=== PATIENT | male | born 1970 | race Caucasian/White ===

== ENCOUNTER 2016-08-30 00:11 | Emergency (ER) | payer SELFPAY ==
[2016-08-30 00:17] VITALS: RESP 18; TEMP 98.7
[2016-08-30] MEDS ORDERED: SODIUM CHLORIDE 0.9% 1,000 ML IV STA (00:24)
[2016-08-30] MEDS ORDERED: LORazepam 2 MG/ML SYRINGE IV STA (00:24)
--- NOTE | 2016-08-30 00:28 | ED ---
General Adult HPI - General Source: patient, police, EMS, RN notes reviewed Mode of arrival: EMS Limitations: no limitations <Blane Meléndez - Last Filed: 08/30/16 03:06> <Espinoza Mack - Last Filed: 09/05/16 20:44> - General Chief complaint: Alcohol Stated complaint: ETOH Time Seen by Provider: 08/30/16 00:16 - History of Present Illness Initial comments: Patient 46-year-old male who presents emergency room today by EMS for alcohol intoxication. Patient does admit to a history of Crohn's. He states he does have abdominal pain. She is in the lower abdomen. States consistent with Crohn 's that is had in the past. Patient denies any other complaints or associated symptoms. Patient denies any recent fever, chills, shortness of breath, chest pain, back pain, nausea or vomiting, numbness or tingling, dysuria or hematuria , constipation or diarrhea, headaches or visual changes, or any other complaints. (Blane Meléndez) - Related Data Home Medications Medication Instructions Recorded Confirmed No Known Home Medications [No 08/30/16 09/04/16 Known Home Medications] Allergies Allergy/AdvReac Type Severity Reaction Status Date / Time dicyclomine [From Bentyl] AdvReac Vomiting Verified 09/04/16 07:02 fentanyl AdvReac Vomiting Verified 09/04/16 07:02 hydrocodone AdvReac Vomiting Verified 09/04/16 07:02 ketorolac [From Toradol] AdvReac Vomiting Verified 09/04/16 07:02 oxycodone AdvReac Vomiting Verified 09/04/16 07:02 tramadol AdvReac Vomiting Verified 09/04/16 07:02 Review of Systems ROS Other: All systems not noted in ROS Statement are negative. <Blane Meléndez - Last Filed: 08/30/16 03:06> ROS Other: All systems not noted in ROS Statement are negative. <Espinoza Mack - Last Filed: 09/05/16 20:44> ROS Statement: Those systems with pertinent positive or pertinent negative responses have been documented in the HPI. Past Medical History Additional Past Medical History / Comment(s): CROHNS History of Any Multi-Drug Resistant Organisms: None Reported Past Surgical History: Unable to Obtain Past Psychological History: No Psychological Hx Reported Smoking Status: Current every day smoker Past Alcohol Use History: Heavy Past Drug Use History: None Reported <Blane Meléndez - Last Filed: 08/30/16 03:06> General Exam Limitations: no limitations <Blane Meléndez - Last Filed: 08/30/16 03:06> <Espinoza Mack - Last Filed: 09/05/16 20:44> - General Exam Comments Initial Comments: General: The patient is awake and alert, in no distress, and does not appear acutely ill. Intoxicated. Eye: Pupils are equal, round and reactive to light, extra-ocular movements are intact. No nystagmus. There is normal conjunctiva bilaterally. No signs of icterus. Ears, nose, mouth and throat: There are moist mucous membranes and no oral lesions. Neck: The neck is supple, there is no tenderness or JVD. Cardiovascular: There is a regular rate and rhythm. No murmur, rub or gallop is appreciated. Respiratory: Lungs are clear to auscultation, respirations are non-labored, breath sounds are equal. No wheezes, stridor, rales, or rhonchi. Gastrointestinal: Soft, non-distended, non-tender abdomen without masses or organomegaly noted. There is no rebound or guarding present. No CVA tenderness. Bowel sounds are unremarkable. Musculoskeletal: Normal ROM, no tenderness. Strength 5/5. Sensation intact. Pulses equal bilaterally 2+. Neurological: A&O x 3. CN II-XII intact, There are no obvious motor or sensory deficits. Coordination appears grossly intact. Speech is normal. Skin: Skin is warm and dry and no rashes or lesions are noted. Psychiatric: Cooperative, appropriate mood & affect, normal judgment. (Blane Meléndez) Course <Blane Meléndez - Last Filed: 08/30/16 03:06> <Espinoza Mack - Last Filed: 09/05/16 20:44> Vital Signs 08/30/16 08/30/16 08/30/16 00:14 03:38 06:48 Temperature 98.7 F Pulse Rate 88 89 80 Respiratory 18 18 18 Rate Blood Pressure 117/71 100/68 O2 Sat by Pulse 95 98 98 Oximetry - Reevaluation(s) Reevaluation #1: 08/30/16 00:48 Patient reexamined at this time currently sleeping in the stretcher. He has declined any blood work by nursing staff. States he would not have his labs drawn lasting Pain medication. Patient is obviously intoxicated. Patient has admit to a history of Crohn's disease. His abdomen was soft on palpation. Patient will be continued to be monitored. His vitals are stable. No fever. 08/30/16 01:21 Patient again reexamined this time still sleeping and stretcher. 08/30/16 03:01 Patient reexamined at this time and is resting comfortably in stretcher. No signs of distress or discomfort. (Blane Meléndez) Medical Decision Making <Blane Meléndez - Last Filed: 08/30/16 03:06> <Espinoza Mack - Last Filed: 09/05/16 20:44> - Medical Decision Making This patient is a 46-year-old man who presented intoxicated and complaining of abdominal pain. He was signed out to me pending his sobriety. I was informed that the patient had walked out. We were not able to locate the patient in the department. (Espinoza Mack) Disposition <Blane Meléndez - Last Filed: 08/30/16 03:06> <Espinoza Mack - Last Filed: 09/05/16 20:44> Clinical Impression: Alcoholic intoxication, Abdominal pain Disposition: Left Against Medical Advice Condition: Fair Referrals: None,Stated [Primary Care Provider] - 1-2 days
[2016-08-30 03:39] VITALS: BP 100/68
[2016-08-30 06:49] VITALS: PULSE 80
--- NOTE | 2016-09-02 13:28 | CDI ---
Please provide final diagnosis. Thank you, Nubia COTE
== END 2016-08-30 10:54 | disposition left against medical advice (07) ==
LOC: EC 00:11
DX: F10.129 Alcohol abuse with intoxication, unspecified (principal); K50.90 Crohn's disease, unspecified, without complications; R10.30 Lower abdominal pain, unspecified; F17.200 Nicotine dependence, unspecified, uncomplicated; Z88.8 Allergy status to other drugs, medicaments and biological substances; Z88.5 Allergy status to narcotic agent
CPT/HCPCS: 99284

== ENCOUNTER 2016-08-31 21:56 | Emergency (ER) | payer SELFPAY ==
[2016-08-31 23:24] LABS: CH 26.5; CHCM 32.5; HCT 31.7 % (39.0-53.0); HDW 3.01; HGB 10.6 gm/dL (13.0-17.5); Hypochromasia Slight; MCH 27.3 pg (25.0-35.0); MCHC 33.4 g/dL (31.0-37.0); MCV 81.9 fL (80.0-100.0); Mean Platelet Volume 6.6; RBC 3.88 m/uL (4.30-5.90); RDW 15.6 % (11.5-15.5); WBC 7.9 k/uL (3.8-10.6)
[2016-08-31 23:32] LABS: ALT 44 U/L (21-72); AST 53 U/L (17-59); Alkaline Phosphatase 57 U/L (38-126); Amylase 49 U/L (30-110); Anion Gap 9 mmol/L; Blood Urea Nitrogen 6 mg/dL (9-20); Calcium 8.7 mg/dL (8.4-10.2); Carbon Dioxide 23 mmol/L (22-30); Chloride 101 mmol/L (98-107); Glucose 92 mg/dL (74-99); Non-African American GFR(MDRD) >60 (>60 ml/min/1.73 sqM); Potassium 4.3 mmol/L (3.5-5.1); Sodium 133 mmol/L (137-145); Total Bilirubin 0.7 mg/dL (0.2-1.3); Total Protein 7.1 g/dL (6.3-8.2)
[2016-08-31 23:44] LABS: Alcohol 338 mg/dL
[2016-09-01 07:13] VITALS: BP 141/78; PULSE 67; RESP 15; TEMP 98.4
--- NOTE | 2016-09-01 09:23 | ED ---
Medical Decision Making - Medical Decision Making This patient was signed out to me by Dr. Roca. Patient was given belligerent with staff and I told staff ago when I speak with him in a minute prior to speaking to the patient he had dressed himself and wheeled himself on his wheelchair without us noticing. - Lab Data Result diagrams: 08/31/16 23:08 08/31/16 23:08 Lab Results 08/31/16 08/31/16 Range/Units 23:08 23:08 WBC 7.9 (3.8-10.6) k/uL RBC 3.88 L (4.30-5.90) m/uL Hgb 10.6 L (13.0-17.5) gm/dL Hct 31.7 L (39.0-53.0) % MCV 81.9 (80.0-100.0) fL MCH 27.3 (25.0-35.0) pg MCHC 33.4 (31.0-37.0) g/dL RDW 15.6 H (11.5-15.5) % Plt Count 295 (150-450) k/uL Hypochromasia Slight Sodium 133 L (137-145) mmol/L Potassium 4.3 (3.5-5.1) mmol/L Chloride 101 (98-107) mmol/L Carbon Dioxide 23 (22-30) mmol/L Anion Gap 9 mmol/L BUN 6 L (9-20) mg/dL Creatinine 0.50 L (0.66-1.25) mg/dL Est GFR (MDRD) Af Amer >60 (>60 ml/min/1.73 sqM) Est GFR (MDRD) Non-Af >60 (>60 ml/min/1.73 sqM) Glucose 92 (74-99) mg/dL Calcium 8.7 (8.4-10.2) mg/dL Total Bilirubin 0.7 (0.2-1.3) mg/dL AST 53 (17-59) U/L ALT 44 (21-72) U/L Alkaline Phosphatase 57 (38-126) U/L Total Protein 7.1 (6.3-8.2) g/dL Albumin 3.9 (3.5-5.0) g/dL Amylase 49 (30-110) U/L Lipase 222 (23-300) U/L Serum Alcohol 338 mg/dL Disposition Clinical Impression: Alcoholic intoxication Disposition: Left Against Medical Advice Time of Disposition: 09:23
--- NOTE | 2016-10-24 09:47 | CDI ---
Documentation Clarification OP Dear Chanelle spencer MD, Please do addendum to ED report that describes complete ED documentation. Thank you, magdiel patel collection systems worker. if you have any questions,please contact manager video games at [phone]. [facility]
--- NOTE | 2016-10-30 05:55 | CDI ---
Documentation Clarification OP Dear Martina stearns MD, Please do addendum to ED report that describes complete ED documentation. Thank you, magdiel patel taper machine. if you have any questions,please contact donor relations manager at [phone]. [facility]
== END 2016-09-01 09:26 | disposition left against medical advice (07) ==
LOC: EC 21:56
DX: F10.129 Alcohol abuse with intoxication, unspecified (principal)
CPT/HCPCS: 36415; 80053; 80320; 82150; 83690; 85027; 99284

== ENCOUNTER 2016-09-03 03:42 | Emergency (ER) | payer SELFPAY ==
[2016-09-03 03:53] VITALS: RESP 16; TEMP 97.1
[2016-09-03] MEDS ORDERED: SODIUM CHLORIDE 0.9% 1,000 ML IV STA (03:55)
[2016-09-03] MEDS ORDERED: ONDANSETRON 4 MG/2 ML VIAL IVP STA (03:55)
[2016-09-03 04:34] LABS: Aty Lym Flag Slight; CH 26.8; CHCM 33.3; HDW 3.04; HGB 10.5 gm/dL (13.0-17.5); MCH 26.5 pg (25.0-35.0); MCHC 32.9 g/dL (31.0-37.0); MCV 80.7 fL (80.0-100.0); Mean Platelet Volume 7.3; RBC 3.97 m/uL (4.30-5.90); RDW 15.8 % (11.5-15.5); WBC 6.5 k/uL (3.8-10.6); WBC (Perox) 5.94
[2016-09-03 04:44] LABS: INR 0.9 (<1.1); Partial Thromboplastin Time 23.6 sec (22.0-30.0); Prothrombin Time 9.4 sec (9.0-12.0)
[2016-09-03 04:45] LABS: ALT 48 U/L (21-72); AST 47 U/L (17-59); Alkaline Phosphatase 60 U/L (38-126); Amylase 48 U/L (30-110); Anion Gap 12 mmol/L; Blood Urea Nitrogen 7 mg/dL (9-20); Calcium 8.7 mg/dL (8.4-10.2); Carbon Dioxide 22 mmol/L (22-30); Chloride 100 mmol/L (98-107); Glucose 77 mg/dL (74-99); Non-African American GFR(MDRD) >60 (>60 ml/min/1.73 sqM); Potassium 3.6 mmol/L (3.5-5.1); Sodium 134 mmol/L (137-145); Total Bilirubin 0.8 mg/dL (0.2-1.3); Total Protein 6.6 g/dL (6.3-8.2)
--- NOTE | 2016-09-03 04:47 | XR ---
EXAM: XR Abdomen, 1 View CLINICAL HISTORY: Reason: abdominal pain TECHNIQUE: Frontal supine view of the abdomen/pelvis. COMPARISON: No relevant prior studies available. FINDINGS: Intraperitoneal space: No discrete calcification in the upper abdomen. Gastrointestinal tract: Focal distended bowel loop in the central abdomen slightly left of the midline, nonspecific. This may represent focal ileus or enteritis. Distal bowel gas seen throughout the large bowel. Organs: Faint calcification in the upper pelvis likely phleboliths. Bones/joints: Mild degenerative changes in the lower lumbar spine. IMPRESSION: 1. No radiopaque renal calculus. 2. Nonspecific bowel gas pattern with findings which may reflect focal ileus or enteritis. 3. Probable pelvic phlebolith
[2016-09-03 04:48] LABS: Alcohol 217 mg/dL
[2016-09-03 04:54] LABS: Creatine Kinase 125 U/L (55-170)
--- NOTE | 2016-09-03 04:55 | ED ---
Abdominal Pain HPI - General Source: patient, EMS, RN notes reviewed, old records reviewed Mode of arrival: EMS Limitations: no limitations - History of Present Illness MD Complaint: abdominal pain, other <Jonathan Jenkins - Last Filed: 09/03/16 06:57> <Garrett Suresh - Last Filed: 09/03/16 09:26> - General Chief Complaint: Abdominal Pain Stated Complaint: ETOH Time Seen by Provider: 09/03/16 03:42 - History of Present Illness Initial Comments: This is a 46-year-old male with a history of Crohn's disease who was brought in by EMS from a local restaurant where he had fallen asleep. When he was awakened he was complaining of some abdominal pain. He also does admit to drinking alcohol but will not say how much she was drinking. He also does admit to smoking cigarettes. He denies any fevers chills or sweats. He denies any trauma though he did feel himself in here by his wheelchair. He was able transfer to the bed. (Jonathan Jenkins) - Related Data Home Medications Medication Instructions Recorded Confirmed No Known Home Medications [No 08/30/16 09/03/16 Known Home Medications] Allergies Allergy/AdvReac Type Severity Reaction Status Date / Time dicyclomine [From Bentyl] AdvReac Vomiting Verified 09/03/16 07:22 fentanyl AdvReac Vomiting Verified 09/03/16 07:22 hydrocodone AdvReac Vomiting Verified 09/03/16 07:22 ketorolac [From Toradol] AdvReac Vomiting Verified 09/03/16 07:22 oxycodone AdvReac Vomiting Verified 09/03/16 07:22 tramadol AdvReac Vomiting Verified 09/03/16 07:22 Review of Systems ROS Other: All systems not noted in ROS Statement are negative. <Jonathan Jenkins - Last Filed: 09/03/16 06:57> ROS Other: All systems not noted in ROS Statement are negative. <Garrett Suresh - Last Filed: 09/03/16 09:26> ROS Statement: Those systems with pertinent positive or pertinent negative responses have been documented in the HPI. 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, uses wheelchair, PE in lungs 2016, "2 nodules on right lung", one kidney from History of Any Multi-Drug Resistant Organisms: None Reported Past Surgical History: Appendectomy Past Psychological History: No Psychological Hx Reported Smoking Status: Current every day smoker Past Alcohol Use History: Abuse, Daily, Heavy Past Drug Use History: None Reported <Jonathan Jenkins - Last Filed: 09/03/16 06:57> General Exam Limitations: no limitations General appearance: alert, in no apparent distress Head exam: Present: atraumatic, normocephalic, normal inspection Eye exam: Present: normal appearance, PERRL, EOMI. Absent: scleral icterus, conjunctival injection, periorbital swelling ENT exam: Present: normal exam, mucous membranes moist Neck exam: Present: normal inspection. Absent: tenderness, meningismus, lymphadenopathy Respiratory exam: Present: normal lung sounds bilaterally. Absent: respiratory distress, wheezes, rales, rhonchi, stridor Cardiovascular Exam: Present: regular rate, normal rhythm, normal heart sounds. Absent: systolic murmur, diastolic murmur, rubs, gallop, clicks GI/Abdominal exam: Present: soft, tenderness (Mild suprapubic tenderness and guarding rebound masses or bruits), normal bowel sounds. Absent: distended, guarding, rebound, rigid Extremities exam: Present: normal inspection, full ROM, normal capillary refill. Absent: tenderness, pedal edema, joint swelling, calf tenderness Back exam: Present: normal inspection Neurological exam: Present: alert, oriented X3, CN II-XII intact Psychiatric exam: Present: normal affect, normal mood Skin exam: Present: warm, dry, intact, normal color. Absent: rash <Jonathan Jenkins - Last Filed: 09/03/16 06:57> <Garrett Suresh - Last Filed: 09/03/16 09:26> - General Exam Comments Initial Comments: This is a well-developed well-nourished awake alert oriented 3 male he does have the smell of alcohol conjoiners on his breath. (Jonathan Jenkins) Course <Jonathan Jenkins - Last Filed: 09/03/16 06:57> <Garrett Suresh - Last Filed: 09/03/16 09:26> Vital Signs 09/03/16 09/03/16 09/03/16 03:44 05:23 06:29 Temperature 97.1 F L Pulse Rate 82 71 83 Respiratory 16 16 16 Rate Blood Pressure 119/63 126/73 113/58 O2 Sat by Pulse 96 97 96 Oximetry - Reevaluation(s) Reevaluation #1: 09/03/16 06:57 Patient is resting comfortably care will be endorsed to Dr. Jenkins who will make the final disposition (Jonathan Jenkins) Medical Decision Making - Lab Data Result diagrams: 09/03/16 04:15 09/03/16 04:15 - Radiology Data Radiology results: report reviewed (I did review the imaging and report no acute findings.), image reviewed <Jonathan Jenkins - Last Filed: 09/03/16 06:57> - Lab Data Result diagrams: 09/03/16 04:15 09/03/16 04:15 <Garrett Suresh - Last Filed: 09/03/16 09:26> - Medical Decision Making Patient's lactic acid was elevated secondary to dehydration. (Garrett Suresh) - Lab Data Lab Results 09/03/16 09/03/16 09/03/16 Range/Units 04:15 04:15 04:15 WBC 6.5 (3.8-10.6) k/uL RBC 3.97 L (4.30-5.90) m/uL Hgb 10.5 L (13.0-17.5) gm/dL Hct 32.0 L (39.0-53.0) % MCV 80.7 (80.0-100.0) fL MCH 26.5 (25.0-35.0) pg MCHC 32.9 (31.0-37.0) g/dL RDW 15.8 H (11.5-15.5) % Plt Count 305 (150-450) k/uL Neutrophils % (Manual) 36.0 % Lymphocytes % (Manual) 54.0 % Monocytes % (Manual) 7.0 % Eosinophils % (Manual) 3.0 % Neutrophils # (Manual) 2.3 (1.3-7.7) k/uL Lymphocytes # (Manual) 3.5 (1.0-4.8) k/uL Monocytes # (Manual) 0.5 (0-1.0) k/uL Eosinophils # (Manual) 0.2 (0-0.7) k/uL Nucleated RBCs 0 (0-0) /100 WBC Manual Slide Review Performed Reactive Lymphocytes Present PT (9.0-12.0) sec INR (<1.1) APTT (22.0-30.0) sec Sodium 134 L (137-145) mmol/L Potassium 3.6 (3.5-5.1) mmol/L Chloride 100 (98-107) mmol/L Carbon Dioxide 22 (22-30) mmol/L Anion Gap 12 mmol/L BUN 7 L (9-20) mg/dL Creatinine 0.70 (0.66-1.25) mg/dL Est GFR (MDRD) Af Amer >60 (>60 ml/min/1.73 sqM) Est GFR (MDRD) Non-Af >60 (>60 ml/min/1.73 sqM) Glucose 77 (74-99) mg/dL Plasma Lactic Acid Leo (0.7-2.0) mmol/L Calcium 8.7 (8.4-10.2) mg/dL Total Bilirubin 0.8 (0.2-1.3) mg/dL AST 47 (17-59) U/L ALT 48 (21-72) U/L Alkaline Phosphatase 60 (38-126) U/L Total Creatine Kinase 125 (55-170) U/L CK-MB (CK-2) 0.5 (0.0-2.4) ng/mL CK-MB (CK-2) Rel Index 0.4 Troponin I <0.012 (0.000-0.034) ng/mL Total Protein 6.6 (6.3-8.2) g/dL Albumin 3.8 (3.5-5.0) g/dL Amylase 48 (30-110) U/L Lipase 232 (23-300) U/L Urine Color Urine Appearance (Clear) Urine pH (5.0-8.0) Ur Specific [place] (1.001-1.035) Urine Protein (Negative) Urine Glucose (UA) (Negative) Urine Ketones (Negative) Urine Blood (Negative) Urine Nitrite (Negative) Urine Bilirubin (Negative) Urine Urobilinogen (<2.0) mg/dL Ur Leukocyte Esterase (Negative) Serum Alcohol 217 mg/dL 09/03/16 09/03/16 09/03/16 Range/Units 04:15 04:15 04:55 WBC (3.8-10.6) k/uL RBC (4.30-5.90) m/uL Hgb (13.0-17.5) gm/dL Hct (39.0-53.0) % MCV (80.0-100.0) fL MCH (25.0-35.0) pg MCHC (31.0-37.0) g/dL RDW (11.5-15.5) % Plt Count (150-450) k/uL Neutrophils % (Manual) % Lymphocytes % (Manual) % Monocytes % (Manual) % Eosinophils % (Manual) % Neutrophils # (Manual) (1.3-7.7) k/uL Lymphocytes # (Manual) (1.0-4.8) k/uL Monocytes # (Manual) (0-1.0) k/uL Eosinophils # (Manual) (0-0.7) k/uL Nucleated RBCs (0-0) /100 WBC Manual Slide Review Reactive Lymphocytes PT 9.4 (9.0-12.0) sec INR 0.9 (<1.1) APTT 23.6 (22.0-30.0) sec Sodium (137-145) mmol/L Potassium (3.5-5.1) mmol/L Chloride (98-107) mmol/L Carbon Dioxide (22-30) mmol/L Anion Gap mmol/L BUN (9-20) mg/dL Creatinine (0.66-1.25) mg/dL Est GFR (MDRD) Af Amer (>60 ml/min/1.73 sqM) Est GFR (MDRD) Non-Af (>60 ml/min/1.73 sqM) Glucose (74-99) mg/dL Plasma Lactic Acid Leo 3.1 H* (0.7-2.0) mmol/L Calcium (8.4-10.2) mg/dL Total Bilirubin (0.2-1.3) mg/dL AST (17-59) U/L ALT (21-72) U/L Alkaline Phosphatase (38-126) U/L Total Creatine Kinase (55-170) U/L CK-MB (CK-2) (0.0-2.4) ng/mL CK-MB (CK-2) Rel Index Troponin I (0.000-0.034) ng/mL Total Protein (6.3-8.2) g/dL Albumin (3.5-5.0) g/dL Amylase (30-110) U/L Lipase (23-300) U/L Urine Color Yellow Urine Appearance Clear (Clear) Urine pH 6.0 (5.0-8.0) Ur Specific [place] 1.006 (1.001-1.035) Urine Protein Negative (Negative) Urine Glucose (UA) Negative (Negative) Urine Ketones Negative (Negative) Urine Blood Negative (Negative) Urine Nitrite Negative (Negative) Urine Bilirubin Negative (Negative) Urine Urobilinogen <2.0 (<2.0) mg/dL Ur Leukocyte Esterase Negative (Negative) Serum Alcohol mg/dL 09/03/16 Range/Units 08:21 WBC (3.8-10.6) k/uL RBC (4.30-5.90) m/uL Hgb (13.0-17.5) gm/dL Hct (39.0-53.0) % MCV (80.0-100.0) fL MCH (25.0-35.0) pg MCHC (31.0-37.0) g/dL RDW (11.5-15.5) % Plt Count (150-450) k/uL Neutrophils % (Manual) % Lymphocytes % (Manual) % Monocytes % (Manual) % Eosinophils % (Manual) % Neutrophils # (Manual) (1.3-7.7) k/uL Lymphocytes # (Manual) (1.0-4.8) k/uL Monocytes # (Manual) (0-1.0) k/uL Eosinophils # (Manual) (0-0.7) k/uL Nucleated RBCs (0-0) /100 WBC Manual Slide Review Reactive Lymphocytes PT (9.0-12.0) sec INR (<1.1) APTT (22.0-30.0) sec Sodium (137-145) mmol/L Potassium (3.5-5.1) mmol/L Chloride (98-107) mmol/L Carbon Dioxide (22-30) mmol/L Anion Gap mmol/L BUN (9-20) mg/dL Creatinine (0.66-1.25) mg/dL Est GFR (MDRD) Af Amer (>60 ml/min/1.73 sqM) Est GFR (MDRD) Non-Af (>60 ml/min/1.73 sqM) Glucose (74-99) mg/dL Plasma Lactic Acid Leo 2.0 (0.7-2.0) mmol/L Calcium (8.4-10.2) mg/dL Total Bilirubin (0.2-1.3) mg/dL AST (17-59) U/L ALT (21-72) U/L Alkaline Phosphatase (38-126) U/L Total Creatine Kinase (55-170) U/L CK-MB (CK-2) (0.0-2.4) ng/mL CK-MB (CK-2) Rel Index Troponin I (0.000-0.034) ng/mL Total Protein (6.3-8.2) g/dL Albumin (3.5-5.0) g/dL Amylase (30-110) U/L Lipase (23-300) U/L Urine Color Urine Appearance (Clear) Urine pH (5.0-8.0) Ur Specific [place] (1.001-1.035) Urine Protein (Negative) Urine Glucose (UA) (Negative) Urine Ketones (Negative) Urine Blood (Negative) Urine Nitrite (Negative) Urine Bilirubin (Negative) Urine Urobilinogen (<2.0) mg/dL Ur Leukocyte Esterase (Negative) Serum Alcohol mg/dL Disposition <Jonathan Jenkins - Last Filed: 09/03/16 06:57> Time of Disposition: 09:25 <Garrett Suresh - Last Filed: 09/03/16 09:26> Clinical Impression: Alcoholic intoxication Disposition: HOME SELF-CARE Instructions: Alcohol Intoxication (ED)
[2016-09-03] MEDS ORDERED: SODIUM CHLORIDE 0.9% 2,000 ML IV ONE (04:59)
[2016-09-03] MEDS ORDERED: SODIUM CHLORIDE 0.9% 1,000 ML with MVI, ADULT NO.4 WITH VIT K 10 ML, THIAMINE 100 MG, F... IV ONE ×4 (05:00)
[2016-09-03 05:07] LABS: Creatine Kinase MB 0.5 ng/mL (0.0-2.4); Troponin I <0.012 ng/mL (0.000-0.034)
[2016-09-03 05:09] LABS: Add Differential Manual Differential
[2016-09-03 05:12] LABS: Manual Review Performed; Nucleated Red Blood Cells 0 /100 WBC (0-0); Total Cells Counted 100
[2016-09-03 05:13] LABS: Reactive Lymphocytes Present
[2016-09-03 05:25] LABS: Appearance,Urine Clear (Clear); Bilirubin,Urine Negative (Negative); Glucose,Urine (UA) Negative (Negative); Ketones,Urine Negative (Negative); Leukocyte Esterase,Urine Negative (Negative); Nitrite,Urine Negative (Negative); Protein,Urine Negative (Negative); Specific Gravity,Urine 1.006 (1.001-1.035); UA Billing (MACRO vs. MICRO) CHEM; Urobilinogen,Urine <2.0 mg/dL (<2.0)
[2016-09-03 06:35] VITALS: BP 113/58; PULSE 83
== END 2016-09-03 09:55 | disposition home or self-care (01) ==
LOC: EC 03:42
DX: F10.129 Alcohol abuse with intoxication, unspecified (principal); R10.9 Unspecified abdominal pain; F17.210 Nicotine dependence, cigarettes, uncomplicated; Z88.8 Allergy status to other drugs, medicaments and biological substances; Z88.5 Allergy status to narcotic agent; Z90.49 Acquired absence of other specified parts of digestive tract
CPT/HCPCS: 99285; 96365; 96366 ×4; 96375; 96361; 36415; 80053; 82150; 82550; 82553; 83605; 83690; 84484; 85025; 85610; 85730; 81003; 80320; 74000; J3411; J2405

== ENCOUNTER 2016-09-04 00:50 | Emergency (ER) | payer SELFPAY ==
[2016-09-04] MEDS ORDERED: SODIUM CHLORIDE 0.9% 1,000 ML IV STA (01:14)
[2016-09-04 01:20] VITALS: BP 103/58; PULSE 92; RESP 18; TEMP 98.8
--- NOTE | 2016-09-04 01:28 | ED ---
General Adult HPI - General Source: patient, RN notes reviewed, old records reviewed Mode of arrival: EMS Limitations: no limitations <Blane Meléndez - Last Filed: 09/04/16 03:31> <Jase Jenkins - Last Filed: 09/04/16 07:57> - General Chief complaint: Abdominal Pain Stated complaint: ABD PAIN Time Seen by Provider: 09/04/16 01:05 - History of Present Illness Initial comments: Patient is a 46-year-old male who presents emergency room today by EMS, the chief complaint abdominal pain. Patient is obviously intoxicated. Falls asleep during conversation. He admits that he's been having abdominal pain. States located in the middle of his abdomen. States consistent with his Crohn' s. Patient states same pain that he's been seen here in the emergency room multiple times recently over the last few days. Patient denies any other complaints or symptoms at this time. He does admit he was drinking earlier today. He does not state how much. Patient denies any other symptoms. Denies any new symptoms. Patient denies any recent fever, chills, shortness of breath, chest pain, back pain, numbness or tingling, dysuria or hematuria, constipation or diarrhea, headaches or visual changes, or any other complaints. (Blane Meléndez) - Related Data Home Medications Medication Instructions Recorded Confirmed No Known Home Medications [No 08/30/16 09/04/16 Known Home Medications] Allergies Allergy/AdvReac Type Severity Reaction Status Date / Time dicyclomine [From Bentyl] AdvReac Vomiting Verified 09/04/16 07:02 fentanyl AdvReac Vomiting Verified 09/04/16 07:02 hydrocodone AdvReac Vomiting Verified 09/04/16 07:02 ketorolac [From Toradol] AdvReac Vomiting Verified 09/04/16 07:02 oxycodone AdvReac Vomiting Verified 09/04/16 07:02 tramadol AdvReac Vomiting Verified 09/04/16 07:02 Review of Systems ROS Other: All systems not noted in ROS Statement are negative. <Blane Meléndez - Last Filed: 09/04/16 03:31> ROS Other: All systems not noted in ROS Statement are negative. <Jase Jenkins - Last Filed: 09/04/16 07:57> ROS Statement: Those systems with pertinent positive or pertinent negative responses have been documented in the HPI. 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, uses wheelchair, PE in lungs 2016, "2 nodules on right lung", one kidney from History of Any Multi-Drug Resistant Organisms: None Reported Past Surgical History: Appendectomy Past Psychological History: No Psychological Hx Reported Smoking Status: Current every day smoker Past Alcohol Use History: Abuse, Daily, Heavy Past Drug Use History: None Reported <Blane Meléndez - Last Filed: 09/04/16 03:31> General Exam Limitations: no limitations <Blane Meléndez - Last Filed: 09/04/16 03:31> <Jase Jenkins - Last Filed: 09/04/16 07:57> - General Exam Comments Initial Comments: General: The patient is awake and alert, in no distress, and does not appear acutely ill. Eye: Pupils are equal, round and reactive to light, extra-ocular movements are intact. No nystagmus. There is normal conjunctiva bilaterally. No signs of icterus. Ears, nose, mouth and throat: There are moist mucous membranes and no oral lesions. Neck: The neck is supple, there is no tenderness or JVD. Cardiovascular: There is a regular rate and rhythm. No murmur, rub or gallop is appreciated. Respiratory: Lungs are clear to auscultation, respirations are non-labored, breath sounds are equal. No wheezes, stridor, rales, or rhonchi. Gastrointestinal: Soft, non-distended, non-tender abdomen without masses or organomegaly noted. There is no rebound or guarding present. No CVA tenderness. Bowel sounds are unremarkable. Musculoskeletal: Normal ROM, no tenderness. Strength 5/5. Sensation intact. Pulses equal bilaterally 2+. Neurological: A&O x 3. CN II-XII intact, There are no obvious motor or sensory deficits. Coordination appears grossly intact. Speech is normal. Skin: Skin is warm and dry and no rashes or lesions are noted. Psychiatric: Cooperative, appropriate mood & affect, normal judgment. (Blane Meléndez) Course <Blane Meléndez - Last Filed: 09/04/16 03:31> <Jase Jenkins - Last Filed: 09/04/16 07:57> Vital Signs 09/04/16 01:14 Temperature 98.8 F Pulse Rate 92 Respiratory 18 Rate Blood Pressure 103/58 O2 Sat by Pulse 95 Oximetry - Reevaluation(s) Reevaluation #1: 09/04/16 03:31 Patient currently resting comfortably sleeping in the stretcher. Case discussed with attending physician Dr Colmenares and signed out at this time. ( Blane Meléndez) Medical Decision Making - Lab Data Result diagrams: 09/04/16 02:00 09/04/16 02:00 <Blane Meléndez - Last Filed: 09/04/16 03:31> - Lab Data Result diagrams: 09/04/16 02:00 09/04/16 02:00 <Jase Jenkins - Last Filed: 09/04/16 07:57> - Medical Decision Making Patient refuses x-ray. Patient reevaluated by myself, Dr. Jenkins. Patient resting comfortably in bed. Patient is refusing further examination or care at this time. Patient states his pain is chronic from Crohn's disease. (Jase Jenkins ) - Lab Data Lab Results 09/04/16 09/04/16 09/04/16 Range/Units 02:00 02:00 04:19 WBC 5.7 (3.8-10.6) k/uL RBC 3.65 L (4.30-5.90) m/uL Hgb 9.9 L (13.0-17.5) gm/dL Hct 30.2 L (39.0-53.0) % MCV 82.8 (80.0-100.0) fL MCH 27.2 (25.0-35.0) pg MCHC 32.9 (31.0-37.0) g/dL RDW 16.1 H (11.5-15.5) % Plt Count 297 (150-450) k/uL Neutrophils % (Manual) 36.0 % Band Neutrophils % 6.0 % Lymphocytes % (Manual) 48.0 % Monocytes % (Manual) 7.0 % Eosinophils % (Manual) 3.0 % Neutrophils # (Manual) 2.4 (1.3-7.7) k/uL Lymphocytes # (Manual) 2.7 (1.0-4.8) k/uL Monocytes # (Manual) 0.4 (0-1.0) k/uL Eosinophils # (Manual) 0.2 (0-0.7) k/uL Nucleated RBCs 0 (0-0) /100 WBC Manual Slide Review Performed Polychromasia Present Hypochromasia Slight Poikilocytosis (manual Present Anisocytosis Slight Target Cells Present Sodium 139 (137-145) mmol/L Potassium 4.0 (3.5-5.1) mmol/L Chloride 105 (98-107) mmol/L Carbon Dioxide 22 (22-30) mmol/L Anion Gap 12 mmol/L BUN 12 (9-20) mg/dL Creatinine 0.70 (0.66-1.25) mg/dL Est GFR (MDRD) Af Amer >60 (>60 ml/min/1.73 sqM) Est GFR (MDRD) Non-Af >60 (>60 ml/min/1.73 sqM) Glucose 88 (74-99) mg/dL Calcium 8.2 L (8.4-10.2) mg/dL Total Bilirubin 0.4 (0.2-1.3) mg/dL AST 48 (17-59) U/L ALT 38 (21-72) U/L Alkaline Phosphatase 56 (38-126) U/L Total Protein 6.1 L (6.3-8.2) g/dL Albumin 3.5 (3.5-5.0) g/dL Amylase 45 (30-110) U/L Lipase 312 H (23-300) U/L Urine Color Light Yellow Urine Appearance Clear (Clear) Urine pH 5.5 (5.0-8.0) Ur Specific [place] 1.008 (1.001-1.035) Urine Protein Negative (Negative) Urine Glucose (UA) Negative (Negative) Urine Ketones Negative (Negative) Urine Blood Negative (Negative) Urine Nitrite Negative (Negative) Urine Bilirubin Negative (Negative) Urine Urobilinogen <2.0 (<2.0) mg/dL Ur Leukocyte Esterase Negative (Negative) Serum Alcohol 209 mg/dL Disposition <Blane Meléndez - Last Filed: 09/04/16 03:31> <Jase Jenkins - Last Filed: 09/04/16 07:57> Clinical Impression: Abdominal pain, Alcoholic intoxication Disposition: Left Against Medical Advice Instructions: Abdominal Pain (ED), Alcohol Intoxication (ED), Abuse of Alcohol (ED) Additional Instructions: Discontinue alcohol use. Follow-up with primary care physician in the next day or 2 for recheck. Return for change or worsening symptoms or other concerns. Referrals: None,Stated [Primary Care Provider] - 1-2 days Brian Jose MD [STAFF PHYSICIAN] - 1-2 days
[2016-09-04 02:24] LABS: ALT 38 U/L (21-72); AST 48 U/L (17-59); Alkaline Phosphatase 56 U/L (38-126); Amylase 45 U/L (30-110); Anion Gap 12 mmol/L; Blood Urea Nitrogen 12 mg/dL (9-20); Calcium 8.2 mg/dL (8.4-10.2); Carbon Dioxide 22 mmol/L (22-30); Chloride 105 mmol/L (98-107); Glucose 88 mg/dL (74-99); Non-African American GFR(MDRD) >60 (>60 ml/min/1.73 sqM); Sodium 139 mmol/L (137-145); Total Bilirubin 0.4 mg/dL (0.2-1.3); Total Protein 6.1 g/dL (6.3-8.2)
[2016-09-04 02:25] LABS: Anisocytosis Slight; Aty Lym Flag Slight; CH 26.8; CHCM 32.5; HCT 30.2 % (39.0-53.0); HDW 2.99; HGB 9.9 gm/dL (13.0-17.5); Hypochromasia Slight; MCH 27.2 pg (25.0-35.0); MCHC 32.9 g/dL (31.0-37.0); MCV 82.8 fL (80.0-100.0); RBC 3.65 m/uL (4.30-5.90); RDW 16.1 % (11.5-15.5); WBC 5.7 k/uL (3.8-10.6); WBC (Perox) 5.51
[2016-09-04 02:31] LABS: Alcohol 209 mg/dL
[2016-09-04 03:16] LABS: Add Differential Manual Differential
[2016-09-04 03:20] LABS: Nucleated Red Blood Cells 0 /100 WBC (0-0); Total Cells Counted 100
[2016-09-04 03:21] LABS: Target Cells Present
[2016-09-04 03:22] LABS: Manual Review Performed; Polychromasia Present
[2016-09-04 04:40] LABS: Appearance,Urine Clear (Clear); Bilirubin,Urine Negative (Negative); Glucose,Urine (UA) Negative (Negative); Ketones,Urine Negative (Negative); Leukocyte Esterase,Urine Negative (Negative); Nitrite,Urine Negative (Negative); PH, Urine 5.5 (5.0-8.0); Protein,Urine Negative (Negative); Specific Gravity,Urine 1.008 (1.001-1.035); UA Billing (MACRO vs. MICRO) CHEM; Urobilinogen,Urine <2.0 mg/dL (<2.0)
== END 2016-09-04 08:02 | disposition left against medical advice (07) ==
LOC: EC 00:50
DX: F10.120 Alcohol abuse with intoxication, uncomplicated (principal); R10.9 Unspecified abdominal pain; K50.90 Crohn's disease, unspecified, without complications; F17.200 Nicotine dependence, unspecified, uncomplicated; Y90.7 Blood alcohol level of 200-239 mg/100 ml; Z86.711 Personal history of pulmonary embolism; Z88.5 Allergy status to narcotic agent; Z88.6 Allergy status to analgesic agent; Z88.8 Allergy status to other drugs, medicaments and biological substances
CPT/HCPCS: 36415; 80053; 80320; 81003; 82150; 83690; 85025; 96360; 99284